=== PATIENT | female | born 1975 | race Caucasian/White ===

== ENCOUNTER 2017-06-29 12:02 | Emergency (ER) | payer BC, MEDICARE, OTHER ==
--- NOTE | 2017-06-29 12:08 | ED Physician Documentation ---
General Adult - HISTORIAN Historian: patient - HPI Stated Complaint: rash Chief Complaint: Skin Rash Onset: other ("weeks" ) Timing: still present Severity: mild Further Comments: yes (She states the areas started on her left lower leg - she reports feeling an itch and then having pain and noting increased spread of a pimple like lesion that then turns to round and raised crusts after. She does have HTN and lupus - she does not take her daily meds for this issue) Last known Well Code/Unknown Code: Unknown - ROS CONST: recent illness (shingles two months ago ). denies: fever EYES/ENT: none CVS/RESP: none GI/: none MS/SKIN/LYMPH: rash NEURO/PSYCH: denies: headache, dizziness - PAST HX Past History: other (HTN, Lupus ) Surgeries/Procedures: none Immunizations: UTD Allergies/Adverse Reactions: Allergies Allergy/AdvReac Type Severity Reaction Status Date / Time No Known Allergies Allergy Verified 06/29/17 12:24 Home Medications: Ambulatory Orders Medication Instructions Recorded Hydrochlorothiazide 25 mg PO DAILY 06/29/17 [Hydrochlorothiazide] Methylphenidate HCl 500 mg PO BID 06/29/17 [Methylphenidate HCl Cd] amLODIPine BESYLATE [Norvasc] 5 mg PO DAILY 06/29/17 - SOCIAL HX Smoking History: non-smoker Alcohol Use: none Drug Use: none - FAMILY HX Family History: No - VITAL SIGNS Vital Signs: Vital Signs Temp Pulse Resp BP Pulse Ox 138/72 10/06/15 13:41 - REVIEWED ASSESSMENTS Nursing Assessment Reviewed: Yes Vitals Reviewed: Yes General Adult Physical Exam - PHYSICAL EXAM GENERAL APPEARANCE: no distress EENT: eye inspection normal NECK: normal inspection RESPIRATORY: no resp distress, chest non-tender, breath sounds normal CVS: reg rate & rhythm, heart sounds normal, equal pulses, no murmur ABDOMEN: soft, normal bowel sounds SKIN: other (small raised pustule on left lower leg. area on left ankle approx 4 cm circular raised edges with crusting. Bilateral lower arms with several varying size areas round raised edges with crusting. area on right upper shoulder 8 cm round raised edges. Several small red raised areas on both arms ) EXTREMITIES: non-tender, normal range of motion, no evidence of injury, no edema NEURO: oriented X3, CN's nml as tested, motor nml, sensation nml, mood/affect nml Discharge Clincal Impression: Rash Referrals: Kemal Carey MD [Primary Care Provider] - 2 Days Comments: 1. Bactrim DS take one by mouth BID x 10 days 2. Diflucan 150 mg take 1 by mouth 3. keep area clean and dry 4. call PCP Saturday for follow up [place] 5. Return to ER for any concerns Condition: Stable Disposition: 01 HOME, SELF-CARE Decision to Admit: NO Date of Decison to Admit: 06/29/17 Decision Time: 13:15
[2017-06-29 12:54] LABS: BASOPHILS % 0.6 (0.0-1.5); EOSINOPHILS % 3.2 % (0.0-6.8); MEAN CORPUSCULAR VOLUME 91.1 fl (80.0-100.0); NEUTROPHILS # 5.6 # k/uL (1.4-7.7)
[2017-06-29 13:25] VITALS: BP 154/99
== END 2017-06-29 13:23 | disposition home or self-care (01) ==
LOC: ED 12:02
DX: R21 Rash and other nonspecific skin eruption (principal)
CPT/HCPCS: 80053; 85025; 87070; 87186; 99282

== ENCOUNTER 2017-10-01 23:37 | Emergency (ER) | payer BC, MEDICARE, OTHER ==
[2017-10-01 23:54] VITALS: BP 133/101
[2017-10-02] MEDS ORDERED: traMADol HCL 50 MG TABLET PO ONE (00:10)
--- NOTE | 2017-10-02 00:16 | ED Physician Documentation ---
Foot Injury - HISTORIAN Historian: patient - HPI Stated Complaint: Left foot pain Chief Complaint: Foot Injury Additional Information: pt on feet xs saturday has foot pain/sprain since was wearing flats-shoes - has high arch. lt foot only Onset: days ago (3) Where: other ([place] hours[place] Severity: moderate Context: denies: fall, twist, direct blow, stab, laceration, barefoot (but was wewaaring flats and pt has high arches bothfeet pain medial mid arch) Associated Symptoms:: denies: tingling, numbness distally, swelling, snapping sensation, popping sensation, unable to bear weight Modifying Factors:: pain on movement - ROS CONST: no problems CVS/RESP: none NEURO: denies: headache, head injury MS/SKIN/LYMPH: none. denies: foot swelling, ankle swelling - PAST HX Past History: other (has lupus and stage 4 renal failure) Allergies/Adverse Reactions: Allergies Allergy/AdvReac Type Severity Reaction Status Date / Time No Known Allergies Allergy Verified 10/01/17 23:54 Home Medications: Ambulatory Orders Medication Instructions Recorded Methylphenidate HCl 500 mg PO BID 06/29/17 [Methylphenidate HCl Cd] Cholecalciferol (Vitamin D3) 1,000 unit PO DAILY 10/01/17 [Vitamin D3] Cholecalciferol (Vitamin D3) 5,000 unit PO WEEK 10/01/17 [Vitamin D3] Hydroxychloroquine Sulfate 200 mg PO BID 10/01/17 [Plaquenil] Loratadine [Claritin] 10 mg PO DAILY 10/01/17 Losartan/Hydrochlorothiazide 1 each PO DAILY 10/01/17 [Hyzaar 50-12.5 Tablet] Ondansetron [Zofran Odt] 4 mg PO DAILY 10/01/17 predniSONE [Deltasone] 40 mg PO QD 10/01/17 - SOCIAL HX Smoking History: non-smoker Alcohol Use: none Drug Use: none - FAMILY HX Family History: no significant history - VITAL SIGNS Vital Signs: Vital Signs Temp Pulse Resp BP Pulse Ox 99.5 F 86 18 133/101 96 10/01/17 23:40 10/01/17 23:40 10/01/17 23:40 10/01/17 23:40 10/01/17 23:40 - REVIEWED ASSESSMENTS Nursing Assessment Reviewed: Yes Vitals Reviewed: Yes ED Results Lab/Radiology - Orders Orders: ED Orders Category Date Time Status traMADol HCL [Ultram] Med 10/02/17 00:10 Once 100 mg PO NOW ONE Foot Injury Physical Exam - Physical Exam General Appearance: mild distress, moderate distress Gait: limited by pain Neuro: sensation nml, motor nml. No: digital nerve deficit, decreased fine touch Vascular: no vascular compromise, dorsalis pedis. No: pallor, cool skin, abnml cap refill Leg/Knee/Thigh: uninjured above ankle. No: swelling, soft-tissue tenderness Skin: intact, warm. No: crepitus, diaphoresis, decubitus Head/ENT: nml inspection Neck/Back: nml inspection Resp/CVS: chest non-tender, breath sounds nml, heart sounds nml, no resp. distress, lungs clear, reg. rate & rhythm Abdomen: non-tender Discharge Clincal Impression: overuse foot sprain, hx lupus and stage 4 renal failure Referrals: Kemal Carey MD [Primary Care Provider] - 2 Days Comments: get arch supports try tramadol to get through acute process Condition: Good Disposition: 01 HOME, SELF-CARE Decision to Admit: NO Decision Time: 00:21
== END 2017-10-02 00:20 | disposition home or self-care (01) ==
LOC: ED 23:37
DX: S93.602A Unspecified sprain of left foot, initial encounter (principal); X58.XXXA Exposure to other specified factors, initial encounter; Y93.9 Activity, unspecified; Y92.9 Unspecified place or not applicable; Y99.9 Unspecified external cause status

== ENCOUNTER 2018-02-27 04:08 | Emergency (ER) | payer MEDICARE, BC ==
[2018-02-27] MEDS ORDERED: ONDANSETRON HCL/PF 4 MG/ 2ML VIAL IVP ONE (04:23)
[2018-02-27] MEDS ORDERED: 0.9 % SODIUM CHLORIDE 1,000 ML IV ONE ×2 (04:31→05:10)
--- NOTE | 2018-02-27 04:35 | ED Physician Documentation ---
General Adult - HISTORIAN Historian: patient - HPI Stated Complaint: Nausea Chief Complaint: General Adult Additional Information: Nausea and vomiting began evening of 02/23 and continued for 12 hours or so. Has gradually been increasing her diet from ice chips to chicken soup. Ate tater tots last evening and has been quite nauseated since. Also has body aches. Urine x 2 today. Thinks she is dehydrated. Son had similar symptoms several days ago. No other modifying factors or associated signs. - ROS CONST: denies: fever - PAST HX Past History: other (SLE, lupus nephritis) Allergies/Adverse Reactions: Allergies Allergy/AdvReac Type Severity Reaction Status Date / Time aspirin AdvReac No Reaction Verified 02/27/18 04:29 Home Medications: Ambulatory Orders Medication Instructions Recorded Methylphenidate HCl 500 mg PO BID 06/29/17 [Methylphenidate HCl Cd] Cholecalciferol (Vitamin D3) 5,000 unit PO WEEK 10/01/17 [Vitamin D3] Hydroxychloroquine Sulfate 200 mg PO BID 10/01/17 [Plaquenil] Loratadine [Claritin] 10 mg PO DAILY 10/01/17 Losartan/Hydrochlorothiazide 1 each PO DAILY 10/01/17 [Hyzaar 50-12.5 Tablet] Ondansetron HCl Rapdis [Zofran Odt] 4 mg PO Q6 PRN #15 tab 02/27/18 - SOCIAL HX Smoking History: non-smoker - FAMILY HX Family History: Yes (son with reent similar symptoms) - VITAL SIGNS Vital Signs: Vital Signs Temp Pulse Resp BP Pulse Ox 98.2 F 101 H 18 142/103 99 02/27/18 04:23 02/27/18 04:23 02/27/18 04:23 02/27/18 04:23 02/27/18 04:23 - REVIEWED ASSESSMENTS Nursing Assessment Reviewed: Yes Vitals Reviewed: Yes Progress - Progress Progress: 0533, Discussed pt with Dr. Lopez, Family Medicine, [facility]. If pt stable, ok to be seen at [facility] tomorrow or Dr. Bui at [facility]. ED Results Lab/Radiology - Orders Orders: ED Orders Category Date Time Status Place IV Lock 1T Care 02/27/18 04:23 Active CBC/PLATELET/DIFF Routine Lab 02/27/18 Ordered CMP Routine Lab 02/27/18 Ordered LIPASE Stat Lab 02/27/18 Ordered URINALYSIS Routine Lab 02/27/18 Ordered NORMAL SALINE @ 1000 MLS/HR ( 1000ml BOLUS) Med 02/27/18 04:31 Ordered 0.9 % Sodium Chloride [Normal Saline] 1,000 ml IV Q1H Ondansetron HCl/Pf [Zofran 4 mg/2 ml] Med 02/27/18 04:23 Discontinued 4 mg IVP NOW ONE General Adult Physical Exam - PHYSICAL EXAM GENERAL APPEARANCE: moderate distress (anxious, talkative) EENT: eye inspection normal, ENT inspection normal (except very dry), pharynx normal NECK: normal inspection, supple RESPIRATORY: breath sounds normal CVS: reg rate & rhythm, heart sounds normal, no murmur ABDOMEN: soft, normal bowel sounds, tenderness (mild, right upper) BACK: normal inspection SKIN: warm/dry, normal color EXTREMITIES: normal range of motion (gait and stance), no evidence of injury NEURO: CN's nml as tested, motor nml, sensation nml Discharge Clincal Impression: Dehydration Nausea and vomiting Qualifiers: Vomiting type: unspecified Vomiting Intractability: non-intractable Qualified Code(s): R11.2 - Nausea with vomiting, unspecified Renal failure (ARF), acute on chronic Qualifiers: Acute renal failure type: unspecified Chronic kidney disease stage: unspecified stage Qualified Code(s): N17.9 - Acute kidney failure, unspecified; N18.9 - Chronic kidney disease, unspecified Prescriptions: Ondansetron HCl Rapdis [Zofran Odt] 4 mg PO Q6 PRN #15 tab PRN Reason: Nausea / Vomiting Referrals: Kemal Carey MD [Primary Care Provider] - 2 Days Condition: Fair Disposition: 01 HOME, SELF-CARE Decision to Admit: NO Decision Time: 06:20
[2018-02-27 05:05] LABS: eGFR (Non-African) 16
[2018-02-27 05:06] LABS: BASOPHILS % 0.3 (0.0-1.5); EOSINOPHILS % 4.5 % (0.0-6.8); MEAN CORPUSCULAR HEMOGLOBIN 29.2 pg (28.0-34.0); MONOCYTES % 6.5 % (0.0-11.0)
[2018-02-27 05:07] LABS: NEUTROPHILS # 4.2 # k/uL (1.4-7.7)
[2018-02-27 06:21] VITALS: BP 171/89
== END 2018-02-27 06:18 | disposition home or self-care (01) ==
LOC: ED 04:08
DX: E86.0 Dehydration (principal); R11.2 Nausea with vomiting, unspecified; N17.9 Acute kidney failure, unspecified; N18.9 Chronic kidney disease, unspecified
CPT/HCPCS: 80053; 83690; 85025; 87400; J2405; J7030; 96360; 96361; 96374; S1016

== ENCOUNTER 2019-04-20 11:50 | Outpatient (CLI) | payer MEDICARE, BC, OTHER ==
[2019-04-20 12:25] LABS: eGFR (Non-African) 6
== END 2019-04-20 11:55 ==
LOC: LAB 11:50
PROVIDERS: ATTEND Internal Medicine Nephrology
DX: E87.5 Hyperkalemia (principal); N18.5 Chronic kidney disease, stage 5
CPT/HCPCS: 36415; 80053